=== PATIENT | female | born 1990 | race Caucasian/White ===

== ENCOUNTER 2020-09-29 21:04 | Emergency (ER) | payer SELFPAY ==
[~2020-09-29] VITALS: Ht 167.6 cm; Wt 99.8 kg
[2020-09-29 21:09] VITALS: BP 152/84
--- NOTE | 2020-09-29 21:09 | NUR ---
TO BED # 03 AMBULATORY
--- NOTE | 2020-09-29 21:15 | NUR ---
PATIENT PRESENTS TO ED WITH C/O H/A . PT STATES IS COVID (+) . DENIES N/V/D; SKIN IS PINK/WARM/DRY; AAOX4 WITH EVEN AND STEADY GAIT; LUNGS CLEAR BL; HR EVEN AND REGULAR; PATIENT STATES PAIN OF 4/10 AT THIS TIME; VSS; PATIENT POSITIONED FOR COMFORT; HOB ELEVATED; BEDRAILS UP X2; BED DOWN. ER MD MADE AWARE OF PT STATUS.
--- NOTE | 2020-09-29 21:36 | NUR ---
Dr. Braxton examining patient.
[2020-09-29] MEDS ORDERED: HYDROcodone/APAP 5/325 MG 1 TAB TAB PO ONE (21:40)
[2020-09-29] MEDS ORDERED: ONDANSETRON 4 MG ODT PO ONE (21:40)
[2020-09-29 22:00] VITALS: BP 152/84
--- NOTE | 2020-09-29 22:04 | NUR ---
Patient discharged with v/s stable. Written and verbal after care instructions given and explained. Patient alert, oriented and verbalized understanding of instructions. Ambulatory with steady gait. All questions addressed prior to discharge. ID band removed. Patient advised to follow up with PMD. Rx of ZOFRAN & NORCO given. Patient educated on indication of medication including possible reaction and side effects. Opportunity to ask questions provided and answered.
== END 2020-09-29 22:04 | disposition home or self-care (01) ==
LOC: MED 21:04
DX: U07.1 COVID-19 (principal); R51.9 Headache, unspecified; R11.0 Nausea; I10 Essential (primary) hypertension; E07.9 Disorder of thyroid, unspecified
CPT/HCPCS: 99283; Q0162